=== PATIENT | male | born 1990 | race African-American/Black ===

== ENCOUNTER 2018-02-06 06:46 | Emergency (ER) | payer SELFPAY ==
[~2018-02-06] VITALS: Ht 165.1 cm; Wt 65.0 kg
[2018-02-06] MEDS ORDERED: PREDNISONE10 MG PO (08:37)
[2018-02-06] MEDS ORDERED: VENTOLIN HFA IN (08:37)
[2018-02-06 08:52] VITALS: BP 130/60
== END 2018-02-06 08:54 | disposition home or self-care (01) | DRG 203 ==
LOC: ED 06:46
DX: J45.901 Unspecified asthma with (acute) exacerbation (principal); R06.02 Shortness of breath

== ENCOUNTER 2018-02-26 05:42 | Emergency (ER) | payer SELFPAY ==
[~2018-02-26] VITALS: Ht 165.1 cm; Wt 63.6 kg
[~2018-02-26 05:42] MED LIST: PREDNISONE10 MG PO; VENTOLIN HFA IN
[2018-02-26] MEDS ORDERED: PROVENTIL HFA IN (06:04)
[2018-02-26 06:23] VITALS: BP 117/56
== END 2018-02-26 06:26 | disposition home or self-care (01) | DRG 203 ==
LOC: ED 05:42
DX: J45.909 Unspecified asthma, uncomplicated (principal); R06.02 Shortness of breath

== ENCOUNTER 2018-03-02 03:20 | Emergency (ER) | payer SELFPAY ==
[~2018-03-02] VITALS: Ht 165.1 cm; Wt 63.8 kg
[~2018-03-02 03:20] MED LIST changes: +PROVENTIL HFA IN
--- NOTE | 2018-03-02 03:55 | NUR ---
BREATHING TREATMENT GIVEN USING A MOUTH PEICE. [facility] FOR GOOD DEPOSITION TO THE LUNGS.
[2018-03-02] MEDS ORDERED: PREDNISONE10 MG PO (04:20)
[2018-03-02 04:35] VITALS: BP 115/57
== END 2018-03-02 04:35 | disposition home or self-care (01) | DRG 203 ==
LOC: ED 03:20
DX: J45.901 Unspecified asthma with (acute) exacerbation (principal); R06.02 Shortness of breath; F17.290 Nicotine dependence, other tobacco product, uncomplicated

== ENCOUNTER 2018-03-24 01:20 | Emergency (ER) | payer SELFPAY ==
[~2018-03-24] VITALS: Ht 165.1 cm; Wt 63.8 kg
[2018-03-24 03:08] VITALS: BP 127/65
== END 2018-03-24 03:30 | disposition home or self-care (01) | DRG 392 ==
LOC: ED 01:20
DX: R10.33 Periumbilical pain (principal)

== ENCOUNTER 2018-10-18 10:50 | Emergency (ER) | payer SELFPAY ==
[~2018-10-18] VITALS: Ht 165.1 cm; Wt 63.6 kg
[2018-10-18] MEDS ORDERED: VENTOLIN HFA IN (13:03)
[2018-10-18] MEDS ORDERED: AMOXICILLIN875 MG PO (13:03)
[2018-10-18 13:10] VITALS: BP 124/73
== END 2018-10-18 13:10 | disposition home or self-care (01) | DRG 153 ==
LOC: ED 10:50
DX: J02.0 Streptococcal pharyngitis (principal); J45.909 Unspecified asthma, uncomplicated; T48.6X6A Underdosing of antiasthmatics, initial encounter; Z91.128 Patient's intentional underdosing of medication regimen for other reason

== ENCOUNTER 2020-03-11 15:38 | Emergency (ER) | payer SELFPAY ==
[~2020-03-11] VITALS: Ht 165.1 cm; Wt 61.0 kg
[~2020-03-11 15:38] MED LIST changes: +AMOXICILLIN875 MG PO
[2020-03-11] MEDS ORDERED: ALBUTEROL SUL0.083 % IN (15:52)
[2020-03-11] MEDS ORDERED: PROAIR HFA108 MCG/AC PO (16:45)
[2020-03-11] MEDS ORDERED: PREDNISONE50 MG PO (16:45)
[2020-03-11] MEDS ORDERED: PROVENTIL0.083 % IN (16:45)
[2020-03-11 17:35] VITALS: BP 120/70
== END 2020-03-11 17:35 | disposition home or self-care (01) | DRG 203 ==
LOC: ED 15:38
DX: J45.901 Unspecified asthma with (acute) exacerbation (principal); Z20.828 Contact with and (suspected) exposure to other viral communicable diseases; Z11.3 Encounter for screening for infections with a predominantly sexual mode of transmission

== ENCOUNTER 2020-03-14 11:02 | Emergency (ER) | payer SELFPAY ==
[~2020-03-14] VITALS: Ht 165.1 cm; Wt 65.0 kg
[~2020-03-14 11:02] MED LIST changes: +ALBUTEROL SUL0.083 % IN; +PREDNISONE50 MG PO; +PROAIR HFA108 MCG/AC PO; +PROVENTIL0.083 % IN
[2020-03-14 12:20] LABS: HEMATOCRIT 46.1 % (39.0-50.0); HEMOGLOBIN 14.8 g/dl (14.0-18.0); MEAN CELL VOLUME 71.3 fL CALC (80.0-100.0); MEAN CORPUSCULAR HGB 22.9 pG CALC (26.0-32.0); MEAN CORPUSCULAR HGB CONC 32.1 g/dL CAL (32.0-36.0); NEUT# 1.7 thou/uL (1.82-7.42); RED BLOOD COUNT 6.47 mill/uL (4.70-6.10); RED CELL DISTRI WIDTH 15.1 % (11.5-15.5)
[2020-03-14 12:38] LABS: ALBUMIN 4.4 g/dL (3.2-5.0); ALKALINE PHOSPHATASE 84 u/l (38-126); ANION GAP 13 (6-22 (CALC)); BILIRUBIN, TOTAL 0.2 mg/dL (0.0-1.4); BUN 13 mg/dL (9-20); BUN/CREATININE RATIO 19 (12-20 (CALC)); CARBON DIOXIDE 23 mmol/l (22-30); CHLORIDE 108 mmol/l (95-108); CREATININE 0.7 mg/dL (0.7-1.3); GFR > 60 ML/MIN (>=60 (CALC)); GFR FOR AFR.AMER. > 60 ML/MIN (>=60 (CALC)); POTASSIUM 4.1 mmol/l (3.5-5.1); SGOT/AST 23 u/l (17-59); SODIUM 139 mmol/l (137-146); TOTAL PROTEIN 8.2 g/dL (6.3-8.2)
[2020-03-14] MEDS ORDERED: TAM75CAP PO (13:22)
[2020-03-14] MEDS ORDERED: MEDDOSEPAK PO (13:22)
[2020-03-14 13:41] VITALS: BP 115/53
== END 2020-03-14 13:42 | disposition home or self-care (01) | DRG 203 ==
LOC: ED 11:02
PROVIDERS: Emergency Medicine
DX: J45.901 Unspecified asthma with (acute) exacerbation (principal); J11.1 Influenza due to unidentified influenza virus with other respiratory manifestations; F17.200 Nicotine dependence, unspecified, uncomplicated

== ENCOUNTER 2020-09-09 04:30 | Emergency (ER) | payer SELFPAY ==
[~2020-09-09] VITALS: Ht 165.1 cm; Wt 59.0 kg
[~2020-09-09 04:30] MED LIST changes: +MEDDOSEPAK PO; +TAM75CAP PO
--- NOTE | 2020-09-09 04:59 | NUR ---
BREATHING TREATMENT GIVEN BACK TO BACK.
[2020-09-09 05:11] LABS: HEMATOCRIT 51.1 % (39.0-50.0); HEMOGLOBIN 15.9 g/dl (14.0-18.0); IMMATURE GRANULOCYTES 0.1 % (0.0-5.0); MEAN CELL VOLUME 72.6 fL CALC (80.0-100.0); MEAN CORPUSCULAR HGB 22.6 pG CALC (26.0-32.0); MEAN CORPUSCULAR HGB CONC 31.1 g/dL CAL (32.0-36.0); NEUT# 2.07 thou/uL (1.82-7.42); RED BLOOD COUNT 7.04 mill/uL (4.70-6.10); RED CELL DISTRI WIDTH 17.4 % (11.5-15.5)
[2020-09-09] MEDS ORDERED: VENTOLIN HFA IN (05:32)
[2020-09-09] MEDS ORDERED: PREDNISONE50 MG PO (05:32)
[2020-09-09 05:34] VITALS: BP 133/64
== END 2020-09-09 06:49 | disposition home or self-care (01) | DRG 203 ==
LOC: ED 04:30
PROVIDERS: Family Medicine
DX: J45.901 Unspecified asthma with (acute) exacerbation (principal); F17.200 Nicotine dependence, unspecified, uncomplicated; T48.6X6A Underdosing of antiasthmatics, initial encounter; Z91.120 Patient's intentional underdosing of medication regimen due to financial hardship
CPT/HCPCS: J3475

== ENCOUNTER 2021-08-02 13:42 | Emergency (ER) | payer SELFPAY ==
[~2021-08-02] VITALS: Ht 165.1 cm; Wt 60.0 kg
[2021-08-02 13:51] VITALS: BP 116/82
[2021-08-02 14:00] VITALS: BP 123/75
[2021-08-02 14:30] VITALS: BP 133/75
[2021-08-02] MEDS ORDERED: VENTOLIN HFA108 MCG IN (14:43)
[2021-08-02] MEDS ORDERED: MEDDOSEPAK PO (14:43)
[2021-08-02] MEDS ORDERED: ZYRTEC10 MG PO (14:47)
[2021-08-02 15:00] VITALS: BP 119/74
[2021-08-02 15:04] VITALS: BP 119/74
== END 2021-08-02 15:12 | disposition home or self-care (01) | DRG 203 ==
LOC: ED 13:42
DX: J45.901 Unspecified asthma with (acute) exacerbation (principal); F17.200 Nicotine dependence, unspecified, uncomplicated

== ENCOUNTER → 2022-01-06 | Emergency (ER) | payer SELFPAY ==
[~2022-01-06] MED LIST changes: +VENTOLIN HFA108 MCG IN; +ZYRTEC10 MG PO
== END | disposition home or self-care (01) | DRG 203 ==
LOC: ED 07:04
DX: J45.901 Unspecified asthma with (acute) exacerbation (principal)

== ENCOUNTER 2022-03-27 10:23 | Emergency (ER) | payer SELFPAY | END 2022-03-27 18:18 | disposition left against medical advice (07) | DRG 556 | LOC: ED 10:23 → LWOBS 10:59 → ED 10:59 → LWOBS 18:18 | DX: M25.579 Pain in unspecified ankle and joints of unspecified foot (principal); M25.539 Pain in unspecified wrist; Z53.21 Procedure and treatment not carried out due to patient leaving prior to being seen by health care provider ==

== ENCOUNTER 2022-04-26 17:40 | Emergency (ER) | payer SELFPAY ==
[~2022-04-26] VITALS: Ht 165.1 cm; Wt 59.0 kg
[2022-04-26 18:15] VITALS: BP 103/68
[2022-04-26 18:31] VITALS: BP 128/84
[2022-04-26] MEDS ORDERED: PROAIR HFA IN (19:01)
[2022-04-26] MEDS ORDERED: PREDNISONE20 MG PO (19:01)
[2022-04-26] MEDS ORDERED: ZYRTEC10 MG PO (19:01)
[2022-04-26] MEDS ORDERED: ALBUTEROL SUL1.25 MG IN (19:01)
[2022-04-26 19:52] VITALS: BP 128/84
== END 2022-04-26 19:54 | disposition home or self-care (01) | DRG 203 ==
LOC: ED 17:40
DX: J45.901 Unspecified asthma with (acute) exacerbation (principal)

== ENCOUNTER 2022-05-08 11:08 | Emergency (ER) | payer SELFPAY ==
[~2022-05-08] VITALS: Ht 165.1 cm; Wt 59.0 kg
[~2022-05-08 11:08] MED LIST changes: +ALBUTEROL SUL1.25 MG IN; +PREDNISONE20 MG PO; +PROAIR HFA IN
[2022-05-08] MEDS ORDERED: PROAIR HFA IN (12:25)
[2022-05-08] MEDS ORDERED: ALBUTEROL SUL0.083 % IN (12:25)
[2022-05-08] MEDS ORDERED: PREDNISONE50 MG PO (12:25)
[2022-05-08] MEDS ORDERED: ARNUITY EL100 MCG/AC PO (12:27)
[2022-05-08 13:11] VITALS: BP 118/72
== END 2022-05-08 13:14 | disposition home or self-care (01) | DRG 203 ==
LOC: ED 11:08
DX: J45.901 Unspecified asthma with (acute) exacerbation (principal); F17.210 Nicotine dependence, cigarettes, uncomplicated; R06.02 Shortness of breath

== ENCOUNTER 2022-06-01 12:29 | Emergency (ER) | payer SELFPAY ==
[~2022-06-01 12:29] MED LIST changes: +ARNUITY EL100 MCG/AC PO
== END 2022-06-01 15:00 | disposition left against medical advice (07) | DRG 951 ==
LOC: ED 12:29 → LWOBS 12:33
DX: Z53.21 Procedure and treatment not carried out due to patient leaving prior to being seen by health care provider (principal)

== ENCOUNTER 2022-07-05 07:55 | Emergency (ER) | payer SELFPAY ==
[~2022-07-05] VITALS: Ht 165.1 cm; Wt 59.0 kg
[2022-07-05] MEDS ORDERED: PROAIR HFA IN (08:46)
[2022-07-05] MEDS ORDERED: SYMBICORT 80-4.5MCG INHW/SPAC (08:46)
[2022-07-05 08:52] VITALS: BP 119/73
== END 2022-07-05 09:03 | disposition home or self-care (01) | DRG 203 ==
LOC: ED 07:55
DX: J45.901 Unspecified asthma with (acute) exacerbation (principal); F17.210 Nicotine dependence, cigarettes, uncomplicated

== ENCOUNTER 2022-07-12 16:04 | Emergency (ER) | payer OTHER ==
[~2022-07-12] VITALS: Ht 165.1 cm; Wt 58.9 kg
[~2022-07-12 16:04] MED LIST changes: +SYMBICORT 80-4.5MCG INHW/SPAC
[2022-07-12 17:08] LABS: URINE BILIRUBIN - DIPSTICK NEGATIVE (NEGATIVE); URINE BLOOD DIPSTICK MODERATE (NEGATIVE); URINE COLOR YELLOW; URINE GLUCOSE - DIPSTICK NEGATIVE (NEGATIVE); URINE KETONE TRACE mg/dL (NEGATIVE); URINE LEUK ESTERASE NEGATIVE (NEGATIVE); URINE PROTEIN - DIPSTICK NEGATIVE (NEG-TRACE); URINE SPECIFIC GRAVITY 1.025; URINE UROBILINOGEN - DIPSTICK 0.2 E.U./dL (0.2)
[2022-07-12 17:12] LABS: URINE NITRITE - DIPSTICK NEGATIVE (Negative)
[2022-07-12 17:20] LABS: URINE RBC 0-2 RBC/hpf (0-5)
[2022-07-12 17:44] VITALS: BP 131/78
== END 2022-07-12 17:58 | disposition home or self-care (01) | DRG 951 ==
LOC: ED 16:04
PROVIDERS: Nurse Practitioner
DX: Z20.828 Contact with and (suspected) exposure to other viral communicable diseases (principal); F17.210 Nicotine dependence, cigarettes, uncomplicated

== ENCOUNTER 2022-12-16 12:20 | Emergency (ER) | payer OTHER ==
[2022-12-16] VITALS (8 sets, daily range): BP systolic 120–133; BP diastolic 72–84
[~2022-12-16] VITALS: Ht 165.1 cm; Wt 64.0 kg
[~2022-12-16 12:20] MED LIST changes: +KEFLEX500 MG PO
[2022-12-16 13:19] LABS: BASO% 0.5 % (0-3); EOS% 4.1 % (0-8); HEMATOCRIT 43.5 % (39.0-50.0); HEMOGLOBIN 14.4 g/dl (14.0-18.0); IMMATURE GRANULOCYTES 0.2 % (0.0-5.0); LYMPH% 31.4 % (15-41); MEAN CELL VOLUME 71.1 fL CALC (80.0-100.0); MEAN CORPUSCULAR HGB 23.5 pG CALC (26.0-32.0); MEAN CORPUSCULAR HGB CONC 33.1 g/dL CAL (32.0-36.0); MONO% 9.3 % (2-13); NEUT# 3.35 thou/uL (1.82-7.42); NEUT% 54.5 % (42-76); RED BLOOD COUNT 6.12 mill/uL (4.70-6.10); RED CELL DISTRI WIDTH 15.8 % (11.5-15.5)
[2022-12-16 13:27] LABS: ALBUMIN 4.7 g/dL (3.2-5.0); ALKALINE PHOSPHATASE 103 u/l (38-126); ANION GAP 14 (6-22 (CALC)); BUN 10 mg/dL (9-20); BUN/CREATININE RATIO 12 (12-20 (CALC)); CARBON DIOXIDE 23 mmol/l (22-30); CHLORIDE 107 mmol/l (95-108); CREATININE 0.8 mg/dL (0.7-1.3); GFR FOR AFR.AMER. > 60 ML/MIN (>=60 (CALC)); GFR OTHER RACES > 60 ML/MIN (>=60 (CALC)); POTASSIUM 3.4 mmol/l (3.5-5.1); SGOT/AST 33 u/l (17-59); SODIUM 141 mmol/l (137-146); TOTAL PROTEIN 8.2 g/dL (6.3-8.2)
[2022-12-16 13:28] LABS: BILIRUBIN, TOTAL 1.2 mg/dL (0.2-1.3)
[2022-12-16] MEDS ORDERED: PREDNISONE50 MG PO (14:49)
== END 2022-12-16 15:05 | disposition home or self-care (01) | DRG 203 ==
LOC: ED 12:20
PROVIDERS: Emergency Medicine
DX: J45.901 Unspecified asthma with (acute) exacerbation (principal); R07.9 Chest pain, unspecified; F41.9 Anxiety disorder, unspecified; F17.200 Nicotine dependence, unspecified, uncomplicated; Z20.822 Contact with and (suspected) exposure to COVID-19